=== PATIENT | male | born 1945 | race Caucasian/White ===

== ENCOUNTER 2018-01-23 10:37 | Day surgery (SDC) | payer OTHER ==
[2018-01-23] MEDS ORDERED: PROPOFOL/EMULSION 500 MG/50 ML BOTTLE IV ONE (11:11)
[2018-01-23] MEDS ORDERED: fentaNYL 100 MCG/2 ML INJ ONE ×2 (11:11→13:35)
[2018-01-23] MEDS ORDERED: LR 1,000 ML IV ONE (11:12)
--- NOTE | 2018-01-23 11:52 | PDHPUP ---
History & Physical Update H&P update statement: This history and physical update is based on an assessment of the patient which was completed after admission or registration (within 24 hours), but prior to the surgery/procedure. H&P update: H&P reviewed & patient examined, no change in patient's condition since H&P completed
--- NOTE | 2018-01-23 12:50 | PDANEPAE ---
ANE Past Medical History - Cardiovascular History Hx Hypertension: No Hx Arrhythmias: Yes Hx Chest Pain: No Hx Coronary Artery / Peripheral Vascular Disease: Yes Hx CHF / Valvular Disease: No Hx Palpitations: No Cardiovascular History Comment: CARDIAC ARREST 2005. IMPLANTED ICD 2005 & REPLACED 2013. MYOCARDIAL BRIDGE - Pulmonary History Hx COPD: No Hx Asthma/Reactive Airway Disease: No Hx Recent Upper Respiratory Infection: No Hx Oxygen in Use at Home: No Hx Sleep Apnea: No Sleep Apnea Screening Result - Last Documented: Positive Pulmonary History Comment: CENTRAL SLEEP APNEA POS - NO CPAP. 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 CONSTIPATION - Other Health History Other Health History: NEG - Chronic Pain History Chronic Pain: No - Surgical History Prior Surgeries: TONSILLECTOMY. POLYPECTOMY COLON. HERNIA REPAIR. 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: [employer] Date Pacemaker Last Checked: 11-11-17 ANE Patient History - Allergies Allergies/Adverse Reactions: memantine [From Namenda] Allergy (Verified 01/23/18 11:26) - Home Medications Home Medications: Mirtazapine [Remeron] 30 mg PO HS 11/06/11 [Last Taken 01/22/18] Plant Stanol Libra [Cholest Off] 450 mg PO BID 11/06/11 [Last Taken 01/16/18] buPROPion SR [Wellbutrin Sr] 150 mg PO DAILY 11/06/11 [Last Taken 01/23/18] Acetaminophen [Tylenol Tablet] 500 mg PO HS 05/21/13 [Last Taken 01/22/18] Ascorbic Acid [Vitamin C 500 mg (OTC)] 1,000 mg PO DAILY 05/21/13 [Last Taken ] Aspirin [Aspirin 81mg (OTC)] 81 mg PO HS 05/21/13 [Last Taken 01/22/18] CALCIUM CARBONATE/VITAMIN D3 [CALCIUM + D 600 MG TABLET] 1 each PO DAILY@ [Last Taken 01/16/18] Cholecalciferol Vit D3 [Vitamin D3 1000 units (OTC)] 1,000 units PO DAILY@ [Last Taken 01/16/18] Docusate Sodium [Stool Softener] 100 mg PO DAILY 05/21/13 [Last Taken 01/23/18] Multivitamins [Tab-A-Bill] 1 each PO HS 05/21/13 [Last Taken 01/16/18] Bristow-3S/Dha/Epa/Fish Oil [Fish Oil 1,200 mg Softgel] 2 each PO DAILY@ [Last Taken 01/16/18] Vitamin B Complex [Vitamin B Complex (OTC)] 1 each PO DAILY@05/21/13 [Last Taken 01/16/18] lamoTRIgine [Lamotrigine] 50 mg PO 05/21/13 [Last Taken 01/22/18] - NPO status NPO Since - Liquids (Date): 01/23/18 NPO Since - Liquids (Time): 08:00 NPO Since - Solids (Date): 01/22/18 NPO Since - Solids (Time): 20:00 - Smoking Hx Smoking Status: Never smoked - Family Anes Hx Family Hx Anesthesia Complications: NEG ANE Labs/Vital Signs - Vital Signs Blood Pressure: 122/74 Heart Rate: 48 Respiratory Rate: 16 O2 Sat (%): 99 Height: 182.88 cm Weight: 68.946 kg ANE Physical Exam - Airway Neck exam: FROM Mallampati Score: Class 2 Mouth exam: normal dental/mouth exam - Pulmonary Pulmonary: no respiratory distress, clear to auscultation - Cardiovascular Cardiovascular: regular rate and rhythym - ASA Status ASA Status: III ANE Anesthesia Plan Anesthesia Plan: general endotracheal anesthesia
[2018-01-23] MEDS ORDERED: HYDROmorphONE/DILAUDID 2 MG/ML INJ IVP PRN (12:51)
[2018-01-23] MEDS ORDERED: ONDANSETRON 4 MG/2 ML VIAL IVP PRN ×2 (12:51→13:12)
[2018-01-23] MEDS ORDERED: ALBUTEROL 3 ML DEYVIAL IH PRN (12:51)
[2018-01-23] MEDS ORDERED: PROMETHAZINE HCL 25 MG/ML INJ IVP PRN (12:51)
[2018-01-23] MEDS ORDERED: NALOXONE HCL 0.4 MG/ML INJ IVP PRN (12:51)
[2018-01-23] MEDS ORDERED: fentaNYL 100 MCG/2 ML INJ IVP PRN (12:51)
[2018-01-23] MEDS ORDERED: DIAZEPAM 5 MG/ML 1 ML SYR IVP PRN (12:51)
[2018-01-23] MEDS ORDERED: ONDANSETRON 4 MG/2 ML VIAL ONE (12:56)
[2018-01-23] MEDS ORDERED: ROCURONIUM 50 MG/5 ML VIAL ONE (12:56)
[2018-01-23] MEDS ORDERED: DEXAMETHASONE 4 MG/ML VIAL ONE (12:57)
[2018-01-23] MEDS ORDERED: RANITIDINE 50 MG/2 ML VIAL ONE (12:57)
--- NOTE | 2018-01-23 13:12 | POSTOPPROG ---
Post Op Note Date of Operation: 01/23/18 Surgeon: Taurus Barrios Ell Tutor: Ora Goncalves PA-C Anesthesiologist: Jatinder Anesthesia: GET(General Endotracheal) Pre-op Diagnosis: RIH Post-op Diagnosis: BIH R direct/L indirect Procedure: BL Lap TEP inguinal herniorrhaphy Findings: as above Inf/Abcess present in the surg proc area at time of surgery?: No Specimen(s): none
[2018-01-23] MEDS ORDERED: oxyCODONE IR 5 MG TAB PO PRN (13:13)
--- NOTE | 2018-01-23 13:22 | POSTANESTH ---
Post Anesthetic Evaluation Respiratory Status: Normal, Stable Level of Consciousness/Mental Status: Can Participate in Eval Pain Control: Adequate, Prn Tx Ordered Nausea/Vomiting Control: Adequate, Prn Tx Ordered Complications Possibly Related to Anesthesia: None Noted
[2018-01-23] MEDS ORDERED: IBUPROFEN 200 MG TAB PO ONE (13:49)
[2018-01-23] MEDS ORDERED: oxyCODONE IR 5 MG TAB ONE (13:49)
[2018-01-23] MEDS ORDERED: IBUPROFEN 600 MG TAB PO SCH (14:00)
--- NOTE | 2018-01-23 14:03 | GOP ---
DATE OF OPERATION: SURGEON: Taurus Barrios MD TRANSACTION ADVISORY SERVICES MANAGER: Leah Goncalves PA-C. Use of an sales assistant displays is standard and required for the safety of the procedure. ANESTHESIA: General endotracheal anesthesia. ANESTHESIOLOGIST: Dr. Stacy Tobias. PREOPERATIVE DIAGNOSIS: Right inguinal hernia. POSTOPERATIVE DIAGNOSIS: Bilateral inguinal hernia, right is direct, left is indirect along with a small direct component. PROCEDURE PERFORMED: FINDINGS: SPECIMENS: There were no specimens. INDICATIONS: This is a 72-year-old gentleman who presents with an incarcerated right inguinal hernia, increasingly symptomatic, especially with running. He also has history of AICD placement as well as a brain injury. He has been appropriately assessed and had risks, benefits, and alternatives to surgery outlined prior to scheduling him for an elective repair DESCRIPTION OF PROCEDURE: The patient was brought to the operating room. After induction of endotracheal anesthesia, the abdomen was prepped with chlorhexidine and draped sterilely. Time-out procedure was performed according to institutional standards. Local anesthetic was infused in the skin and subcutaneous tissues of the trocar sites and open preperitoneal trocar placement was done in the standard fashion on the right rectus. After insufflation to 15 TOR with carbon dioxide working trocars were placed in the lower midline under direct visualization. The right and then left inguinal spaces were dissected out. The right side has a direct inguinal hernia that is incarcerated and gentle dissection was used to take the omental fat and preperitoneal fat from inside the defect and after complete dissection from the pubic tubercle to the anterior superior iliac spine a 3DMax mesh large is interposed between the hernia defect and the peritoneum. The left side is similarly dissected out. A larger than expected indirect hernia was identified. This was completely reduced with lipoma of the cord and a small direct component was also identified. After dissection began from the pubic tubercle to the anterior superior iliac spine, the mesh was then interposed between the hernia defects and the peritoneum. The area was ensured to be hemostatic. The area was collapsed. Mesh was in appropriate placement. The patient tolerated the procedure well. The fascia was reapproximated using 0 Vicryl and all 3 ports were reapproximated at the skin level using 4-0 Monocryl. Dermabond was applied. The patient was awakened, extubated and taken to the recovery room in stable condition. No immediate complications. /[id number]/MODL MTDD
[2018-01-23 16:02] VITALS: BP 116/74
== END 2018-01-23 15:50 | disposition home or self-care (01) ==
LOC: FSGY 10:37
PROVIDERS: ATTEND Surgery
PROC: 0WUF4JZ Supplement Abdominal Wall with Synthetic Substitute, Percutaneous Endoscopic Approach (ICD-10-PCS; principal; 2018-01-23 12:00)
DX: K40.20 Bilateral inguinal hernia, without obstruction or gangrene, not specified as recurrent (principal); G47.31 Primary central sleep apnea; G93.1 Anoxic brain damage, not elsewhere classified; Z95.810 Presence of automatic (implantable) cardiac defibrillator; Z86.74 Personal history of sudden cardiac arrest
CPT/HCPCS: C1727; C1781; J1100; J2405; J2704; J2780; J3010